=== PATIENT | female | born 1955 | race Caucasian/White ===

== ENCOUNTER 2022-05-18 21:48 | Emergency (ER) | payer BC, SELFPAY ==
[2022-05-18 22:33] LABS: Absolute Lymphocytes (CBC) 2.1 K/uL (0.7-4.9); Lymphocytes % 32.9 % (15.3-44.8); MCV 95.6 fL (80-100); MPV 8.5 fL (7.6-11.3); RBC Red Blood Cell Count 3.87 M/uL (3.86-4.86)
[2022-05-18 22:55] LABS: Potassium 3.3 mmol/L (3.5-5.1); Troponin High Sensitivity 3.2 pg/mL (<58.9)
[2022-05-19 00:54] LABS: Barbiturates NEGATIVE (NEGATIVE); Benzodiazepines NEGATIVE (NEGATIVE); Cocaine NEGATIVE (NEGATIVE); METHAMPHETAM NEGATIVE (NEGATIVE); Methadone NEGATIVE (NEGATIVE); Opiates NEGATIVE (NEGATIVE); Phencyclidine NEGATIVE (NEGATIVE); THC Cannibis POSITIVE (NEGATIVE)
--- NOTE | 2022-05-19 01:17 | ER ---
Nurse's Notes [facility] Name: Yani Bradshaw Age: 66 yrs Sex: Female : 1955 Arrival Date: 05/18/2022 Time: 21:56 Bed 2 Private MD: Diagnosis: Altered mental status, unspecified;Alcohol use, unspecified;THC Presentation: 05/18 21:57 Chief complaint: EMS states: Called for patient with episode of syncope after ETOH lp1 intake and also having THC spray during pool democrat; Patient with hx of pacemaker. Coronavirus screen: At this time, the client does not indicate any symptoms associated with coronavirus-19. Ebola Screen: No symptoms or risks identified at this time. Initial Sepsis Screen: Does the patient meet any 2 criteria? No. Patient's initial sepsis screen is negative. Does the patient have a suspected source of infection? No. Patient's initial sepsis screen is negative. Risk Assessment: Do you want to hurt yourself or someone else? Patient reports no desire to harm self or others. Onset of symptoms was May 18, 2022. Care prior to arrival: Medication(s) given: Normal saline infusion, 250ml IV initiated. 20 GA, in the right antecubital area. 21:57 Method Of Arrival: EMS: [facility] lp1 21:57 Acuity: LINNEA 3 lp1 Historical: - Allergies: 21:59 TETRACYCLINES; lp1 - Home Meds: 21:59 hormone replacement [Active]; lp1 - PSHx: 21:59 Pacemaker; lp1 22:32 hysterectomy; breast implants; lp1 - Immunization history:: Adult Immunizations up to date. - Social history:: Smoking status: Patient reports the use of cigarette tobacco products, denies chronic smoking, but will smoke occasionally. Screenin:28 Abuse screen: Denies threats or abuse. Denies injuries from another. Nutritional lp1 screening: No deficits noted. Tuberculosis screening: No symptoms or risk factors identified. Fall Risk Total Carroll Fall Scale indicates High Risk Score (45 or more points). Fall prevention measures have been instituted. Side Rails Up X 2 Placed Close to Nursing Station Frequent Obs/Assessments Occuring. Assessment: 22:28 General: Appears in no apparent distress. well groomed, Behavior is drowsy. Pain: lp1 Denies pain. Neuro: Level of Consciousness is obeys commands, Oriented to person, place, Gait is unsteady, Reports dizziness. Cardiovascular: Capillary refill < 3 seconds in bilateral fingers toes Patient's skin is warm and dry. Rhythm is regular. Respiratory: Airway is patent Respiratory effort is even, unlabored. GI: No signs and/or symptoms were reported involving the gastrointestinal system. : No signs and/or symptoms were reported regarding the genitourinary system. EENT: No signs and/or symptoms were reported regarding the EENT system. Derm: Skin is intact, Skin is dry, Skin is normal. Musculoskeletal: No deficits noted. 23:45 Reassessment: Patient appears in no apparent distress at this time. Patient resting, lp1 eyes closed, respirations even, unlabored; aware of waiting for pending lab results. 05/19 00:30 Reassessment: Patient appears in no apparent distress at this time. No changes from lp1 previously documented assessment. Vital Signs: 05/18 21:57 BP 179 / 93; Pulse 79; Resp 17; Temp 97.6(O); Pulse Ox 98% on R/A; Weight 45.36 kg (R); lp1 Height 5 ft. 1 in. (154.94 cm); Pain 0/10; 22:28 BP 162 / 73; Pulse 80; Resp 12; Pulse Ox 96% on R/A; lp1 23:24 BP 127 / 60; Pulse 77; Resp 15; Pulse Ox 96% on R/A; lp1 05/19 01:00 BP 123 / 62; Pulse 89; Resp 18; Pulse Ox 99% on R/A; jb4 01:34 BP 123 / 75; Pulse 85; Resp 15 S; Pulse Ox 99% on R/A; aa9 05/18 21:57 Body Mass Index 18.89 (45.36 kg, 154.94 cm) lp1 ED Course: 05/18 21:56 Patient arrived in ED. lp1 21:58 Mathew Nelson MD is Attending Physician. kdr 21:59 Triage completed. lp1 21:59 Arm band placed on. lp1 22:15 Maintain EMS IV. Dressing intact. Good blood return noted. Site clean \T\ dry. Gauge \T\ lp 1 site: 20g to R AC. 22:15 Initial lab(s) drawn, by me, sent to lab. lp1 22:27 Marni Saba, RN is Primary Nurse. lp1 22:28 Patient has correct armband on for positive identification. Placed in gown. Bed in low lp1 position. Call light in reach. Side rails up X2. Client placed on continuous cardiac and pulse oximetry monitoring. NIBP monitoring applied. 22:45 XRAY Chest (1 view) In Process Unspecified. EDMS 23:09 CT Head Brain wo Cont In Process Unspecified. EDMS 05/19 01:34 No provider procedures requiring assistance completed. IV discontinued, intact, aa9 bleeding controlled, No redness/swelling at site. Pressure dressing applied. Administered Medications: No medications were administered Medication: 05/18 22:29 VIS not applicable for this client. lp1 Outcome: 05/19 01:17 Discharge ordered by . kdr 01:34 Discharged to home ambulatory. aa9 01:34 Condition: stable 01:34 Discharge instructions given to patient, Instructed on discharge instructions, follow up and referral plans. Demonstrated understanding of instructions, follow-up care. 01:42 Patient left the ED. aa9 Signatures: Dispatcher [employer] EDWI Mathew Nelson MD MD kdr Marni aSba, RN RN lp1 Raghu Lopez, RN RN jb4 Luann Gilliland, NATA RN aa9 Corrections: (The following items were deleted from the chart) 05/18 22:27 21:57 BP 179 / 93; Pulse 79bpm; Resp 17bpm; Pulse Ox 98% RA; lp1 lp1 22:27 21:59 Social history: Smoking status: Patient denies any tobacco usage or history of. lp1 lp1 22:30 22:28 Neuro: Level of Consciousness is obeys commands, Oriented to person, place, Gait lp1 is unsteady, lp1 22:35 21:57 BP 179 / 93; Pulse 79bpm; Resp 17bpm; Pulse Ox 98% RA; 45.36 kg Reported; Height lp1 5 ft. 1 in.; BMI: 18.8; Pain 0/10; lp1
--- NOTE | 2022-05-19 01:18 | EDPHYS ---
Physician Documentation [facility] Name: Yani Bradshaw Age: 66 yrs Sex: Female : 1955 Arrival Date: 05/18/2022 Time: 21:56 Bed 2 Private MD: ED Physician Mathew Nelson HPI: 05/18 23:35 This 66 yrs old Female presents to ER via EMS with complaints of Syncope. kdr 23:35 The patient has experienced syncope, The patient has experienced near-syncope, almost kdr passed out. Onset: The symptoms/episode began/occurred just prior to arrival, today. Duration: The patient has had multiple episodes, Patient states that she was laying on the couch with her and felt that she was passing out intermittently. Context: the episode(s) was witnessed, by family, occurred at home, occurred while the patient was at rest, Just prior to the episode the patient experienced The course of the day, the patient has had multiple alcoholic beverages and possibly a THC containing product. Associated injury: The patient did not suffer any apparent associated injury. Associated signs and symptoms: The patient has no apparent associated signs or symptoms. Current symptoms: Patient generally appears intoxicated and is having difficulty with her speech overall mentation. It is unknown whether or not the patient has had similar symptoms in the past. The patient has not recently seen a physician. Historical: - Allergies: 21:59 TETRACYCLINES; lp1 - Home Meds: 21:59 hormone replacement [Active]; lp1 - PSHx: 21:59 Pacemaker; lp1 22:32 hysterectomy; breast implants; lp1 - Immunization history:: Adult Immunizations up to date. - Social history:: Smoking status: Patient reports the use of cigarette tobacco products, denies chronic smoking, but will smoke occasionally. ROS: 23:35 Constitutional: Negative for fever, chills, and weight loss, Eyes: Negative for injury, kdr pain, redness, and discharge, Neck: Negative for injury, pain, and swelling, Cardiovascular: Negative for chest pain, palpitations, and edema, Respiratory: Negative for shortness of breath, cough, wheezing, and pleuritic chest pain, Abdomen/GI: Negative for abdominal pain, nausea, vomiting, diarrhea, and constipation, Back: Negative for injury and pain, : Negative for injury, bleeding, discharge, and swelling, MS/Extremity: Negative for injury and deformity, Skin: Negative for injury, rash, and discoloration, Psych: Negative for depression, anxiety, suicide ideation, homicidal ideation, and hallucinations, Allergy/Immunology: Negative for hives, rash, and allergies, Endocrine: Negative for neck swelling, polydipsia, polyuria, polyphagia, and marked weight changes, Hematologic/Lymphatic: Negative for swollen nodes, abnormal bleeding, and unusual bruising. 23:35 Neuro: Positive for altered mental status, speech changes, near syncope, weakness. Exam: 23:35 Constitutional: This is a well developed, well nourished patient who is awake, alert, kdr and in no acute distress. Head/Face: Normocephalic, atraumatic. Eyes: Pupils equal round and reactive to light, extra-ocular motions intact. Lids and lashes normal. Conjunctiva and sclera are non-icteric and not injected. Cornea within normal limits. Periorbital areas with no swelling, redness, or edema. Neck: Trachea midline, no thyromegaly or masses palpated, and no cervical lymphadenopathy. Supple, full range of motion without nuchal rigidity, or vertebral point tenderness. No Meningismus. Chest/axilla: Normal chest wall appearance and motion. Nontender with no deformity. No lesions are appreciated. Cardiovascular: Regular rate and rhythm with a normal S1 and S2. No gallops, murmurs, or rubs. Normal PMI, no JVD. No pulse deficits. Respiratory: Lungs have equal breath sounds bilaterally, clear to auscultation and percussion. No rales, rhonchi or wheezes noted. No increased work of breathing, no retractions or nasal flaring. Abdomen/GI: Soft, non-tender, with normal bowel sounds. No distension or tympany. No guarding or rebound. No evidence of tenderness throughout. Back: No spinal tenderness. No costovertebral tenderness. Full range of motion. Skin: Warm, dry with normal turgor. Normal color with no rashes, no lesions, and no evidence of cellulitis. MS/ Extremity: Pulses equal, no cyanosis. Neurovascular intact. Full, normal range of motion. Psych: Awake, alert, with orientation to person, place and time. Behavior, mood, and affect are within normal limits. 23:35 Neuro: Orientation: appropriate for stated age, Mentation: slow to respond, Memory: appropriate for stated age, Cranial nerves: no acute changes, Cerebellar function: Slow to respond, Motor: moves all fours, Sensation: numbness. Vital Signs: 21:57 BP 179 / 93; Pulse 79; Resp 17; Temp 97.6(O); Pulse Ox 98% on R/A; Weight 45.36 kg (R); lp1 Height 5 ft. 1 in. (154.94 cm); Pain 0/10; 22:28 BP 162 / 73; Pulse 80; Resp 12; Pulse Ox 96% on R/A; lp1 23:24 BP 127 / 60; Pulse 77; Resp 15; Pulse Ox 96% on R/A; lp1 05/19 01:00 BP 123 / 62; Pulse 89; Resp 18; Pulse Ox 99% on R/A; jb4 01:34 BP 123 / 75; Pulse 85; Resp 15 S; Pulse Ox 99% on R/A; aa9 05/18 21:57 Body Mass Index 18.89 (45.36 kg, 154.94 cm) lp1 MDM: 05/18 23:35 Data reviewed: vital signs. Counseling: I had a detailed discussion with the patient kdr and/or guardian regarding: the historical points, exam findings, and any diagnostic results supporting the discharge/admit diagnosis, lab results, radiology results, the need for outpatient follow up. 05/19 01:17 Patient medically screened. [facility] 05/18 22:11 Order name: Basic Metabolic Panel; Complete Time: 23:33 [facility] 05/18 22:11 Order name: CBC with Diff; Complete Time: 23:33 [facility] 05/18 22:11 Order name: Troponin HS; Complete Time: 23:33 [facility] 05/18 22:11 Order name: XRAY Chest (1 view) [facility] 05/18 22:25 Order name: UDS; Complete Time: 01:08 [facility] 05/18 22:25 Order name: ETOH Level; Complete Time: 23:33 [facility] 05/18 22:11 Order name: EKG; Complete Time: 22:13 [facility] 05/18 22:11 Order name: Cardiac monitoring; Complete Time: 22:27 [facility] 05/18 22:11 Order name: EKG - Nurse/Tech; Complete Time: :27 [facility] 05/18 22:11 Order name: IV Saline Lock; Complete Time: : [facility] 05/18 22:11 Order name: Labs collected and sent; Complete Time: : kdr 05/18 22:11 Order name: O2 Per Protocol; Complete Time: kdr 05/18 22:11 Order name: O2 Sat Monitoring; Complete Time: kdr 05/18 22:25 Order name: CT Head Brain wo Cont kdr Administered Medications: No medications were administered Disposition Summary: 05/19/22 01:17 Discharge Ordered Location: Home kdr Problem: new kdr Symptoms: have improved kdr Condition: Stable kdr Diagnosis - Altered mental status, unspecified kdr - Alcohol use, unspecified kdr - THC kdr Followup: kdr - With: Private Physician - When: 2 - 3 days - Reason: If symptoms return, Further diagnostic work-up, Recheck today's complaints, Continuance of care, Re-evaluation by your physician Discharge Instructions: - Discharge Summary Sheet kdr - Confusion kdr - Alcohol Intoxication, [id number] kdr Forms: - Medication Reconciliation Form kdr - Thank You Letter kdr Signatures: Dispatcher [employer] EDMathew Galvan MD MD kdr Marni Saba RN RN lp1 Corrections: (The following items were deleted from the chart) 05/18 22: 21:59 Social history: Smoking status: Patient denies any tobacco usage or history of. lp1 lp1
[2022-05-19 02:05] VITALS: TEMP 97.6
[2022-05-19 02:15] VITALS: O2SAT 99
[2022-05-19 02:17] VITALS: BP 123/75
--- NOTE | 2022-05-19 12:20 | EKG ---
Test Date: 2022-05-18 Test Time: 22:07:52 Epic Ambulatory Analyst: KEVIN MEASUREMENT RESULTS: Intervals: Rate: 71 ND: 194 QRSD: 138 QT: 452 QTc: 491 [place]: P: 62 ND: 194 QRS: 51 T: 34 INTERPRETIVE STATEMENTS: Normal sinus rhythm Right bundle branch block Abnormal ECG No previous ECG available for comparison Electronically Signed On 05-19-22 12:19:49 CDT by Jeferson Levy
--- NOTE | 2022-05-19 13:40 | RAD REPORT ---
EXAM DESCRIPTION: RAD - Chest Single View - 05/18/2022 10:43 pm CLINICAL HISTORY: CHEST PAIN COMPARISON: None. FINDINGS: Single frontal radiograph view of the chest. 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 Leads overlie the chest. Lungs: No consolidation, pneumothorax, or pleural effusion. Bones: No acute osseous abnormality. Upper abdomen: No abnormality identified. IMPRESSION: 1. No acute pulmonary process identified. Electronically signed by: Ivan Amaya 05/18/2022 11:21 PM CDT Due to temporary technical issues with the PACS/Fluency reporting system, reports are being signed by the in house radiologists without review as a courtesy to insure prompt reporting. The interpreting radiologist is fully responsible for the content of the report.
--- NOTE | 2022-05-19 13:42 | RAD REPORT ---
EXAM DESCRIPTION: CT - Head Brain Wo Cont - 05/19/2022 3:04 am CLINICAL HISTORY: Mental status change, alcohol/drug use COMPARISON: None available TECHNIQUE: Axial CT of the head obtained from the skull apex to the skull base without contrast. Thi s exam was performed according to our departmental dose-optimization program, which includes automate d exposure control, adjustment of the mA and/or kV according to patient size and/or use of iterative reconstruction technique. FINDINGS: No acute intracranial hemorrhage identified. No mass, mass effect, shift of the midline, a bnormal extra-axial fluid collection or CT evidence of acute ischemic change identified. The ventricu lar system is unremarkable. No acute abnormalities of the supratentorial white matter, basal gangli a, cerebellum, or brainstem. Mucosal thickening of the paranasal sinuses. No skull fracture identified. Visualized orbits and gl obes are unremarkable. IMPRESSION: 1. No acute intracranial abnormality identified. . Electronically signed by: Ivan Amaya 05/18/2022 11:23 PM CDT Due to temporary technical issues with the PACS/Fluency reporting system, reports are being signed by the in house radiologists without review as a courtesy to insure prompt reporting. The interpreting radiologist is fully responsible for the content of the report.
== END 2022-05-19 01:42 | disposition home or self-care (01) ==
LOC: ER 21:48
DX: R41.82 Altered mental status, unspecified (principal); Z72.89 Other problems related to lifestyle; F19.90 Other psychoactive substance use, unspecified, uncomplicated; R55 Syncope and collapse; F17.210 Nicotine dependence, cigarettes, uncomplicated; Z95.0 Presence of cardiac pacemaker; Z98.82 Breast implant status
CPT/HCPCS: 36415; 70450; 71045; 80048; 80307; 80320; 84484; 85025; 93005; 99284

== ENCOUNTER 2023-05-20 01:29 | Emergency (ER) | payer OTHER ==
--- OUTSIDE RECORDS SUMMARY | 2023-05-20 01:36 | XMS REPORT | Continuity of Care Document ---
:1955 Author Organization [facility] t Address [address] [place] [address] [place] [id number] Care Team Providers Name Role Phone PCP, PATIENT DOES NOT HAVE A Primary Care Physician UnavailLeon Tam V Attending Clinician Unavailable Luisa Apple Attending Clinician Unavailable DANIELE MARR Attending Clinician Unavailable Raghu Guerrero Attending Clinician Unavailable Lab, Adc Fam Pob I Attending Clinician Unavailable Mariposa Magaña Attending Clinician LEON OGDEN Attending Clinician Unavailable Estella Coats Attending Clinician LISBETH PEREA Attending Clinician Unavailable MD LISBETH PEREA Attending Clinician Unavailable Leon Ogden V Admitting Clinician Unavailable Luisa Apple Admitting Clinician Unavailable Raghu Guerrero Admitting Clinician Unavailable Physician, No Primary or Family Admitting Clinician UnavailLISBETH Cedeño Admitting Clinician Unavailable MD LISBETH PEREA Admitting Clinician Unavailable Payers Payer Name Policy Type Policy Number Effective Date Expiration Date Jen perez [facility] [id number] 2016 00:00:00 Problems Condition Condition Condition Status Onset Resolution Last Treating Co mments Source Name Details Category Date Date Treatment Clinician Date Pacemaker Pacemaker Disease Active [facility] battery battery 5-27 st depletion depletion 00:00: Hosp cy 00 l Allergies, Adverse Reactions, Alerts Allergy Allergy Status Severity Reaction(s) Onset Inactive Treating Comm ents Source Name Type Date Date Clinician Jose Francisco Jean Carlosensi Active GI Method i acin ty to Intolerance 03-14 st adverse 00:00: Hospita reaction 00 l s to drug No Known DA Active U 2007-10 [facility] [place] [facility] No Known DA Active U 2007-10 [facility] Drug 11-20 [place] [facility] No Known DA Active U 2007-10 [facility] Food 11-20 [place] Allergie 00:[facility]: [facility] TAPE DA Active U IRRITATION 2007-10 [facility] [place] [facility] No Known DA Active U [facility] Drug 03-10 [place] Intolera 00:00: d nces 00 [facility] NO KNOWN Drug Active Univers ALLERGIE Class ity of S [facility] Family History Family Member Diagnosis Comments Start Date Stop Date Source Natural father [facility] Natural mother Heart disease [facility] Social History Social Habit Start Date Stop Date Quantity Comments Source Gender identity [facility] Sexual orientation [facility] Exposure to Yes University of SARS-CoV-2 (event) [facility] History of tobacco Smokes tobacco [facility] use daily Hospital History of Social 2022-12-22 2022-12-22 [facility] function 00:00:00 00:00:00 Hospital Alcohol intake 2020-03-21 2020-03-21 Current drinker [facility] 00:00:00 00:00:00 of alcohol Hospital (finding) Tobacco use and 2020-03-14 2020-03-14 Smokeless Shinto exposure 00:00:00 00:00:00 tobacco non-user Hospital Sex Ass[birth year] [facility] 00:00:00 00:00:00 Hospital Smoking Status Start Date Stop Date Source [facility] Smokes tobacco daily 2020-03-14 00:00:00 [facility] Medications Ordered Filled Start Stop Current Ordering Indication Dosage Frequency Signature Comments Components Source Medication Medication Date Date Medication? Clinician (SIG) Name Name AMLODIPINE Yes 5mg QD Take 5 mg [facility] BESYLATE, 03-[address] BULK, MISC 13:15: daily. Hospi ta 31 l estradioL 2020-0 Yes 1mg QD Take 1 mg Met hodi (ESTRACE) 1 5-[address] MG tablet 13:15: daily. Hospit a 31 l AMLODIPINE 2020-0 Yes 5mg QD Take 5 mg [facility] BESYLATE, 5-[address] BULK, MISC 13:15: daily. Hospi ta 31 l estradioL 2020-0 Yes 1mg QD Take 1 mg [facility] (ESTRACE) 1 5-[address] MG tablet 13:15: daily. Hospit a 31 l AMLODIPINE 2020-0 Yes 5mg QD Take 5 mg [facility] BESYLATE, 5-[address] BULK, MISC 13:15: daily. Hospi ta 31 l estradioL 2020-0 Yes 1mg QD Take 1 mg Met [facility] (ESTRACE) 1 5-[address] MG tablet 13:15: daily. Hospit a 31 l Procedures This patient has no known procedures. Plan of Care Planned Activity Planned Date Details Comments Source Future Scheduled 2023-04-22 COVID-19 [facility]ACC[facility]:48:01 [code = COVID-19 VACCINE (#1)] Future Scheduled 2023-04-22 65+ PNEUMOCOCCAL [facility] Test 11:48:01 VACCINE (1 - PCV) [code = 65+ PNEUMOCOCCAL VACCINE (1 - PCV)] Future Scheduled 2023-04-22 [facility] Test 11:48:01 (procedure) [code = 130428308] Future Scheduled 2023-04-22 BREAST CANCER [facility] Test 11:48:01 SCREENING [code = BREAST CANCER SCREENING] Future Scheduled 2023-04-22 Screening for [facility] Test 11:48:01 malignant neoplasm of colon (procedure) [code = 356858875] Future Scheduled 2023-04-22 Screening for [facility] Test 11:48:01 malignant neoplasm of colon (procedure) [code = 460829271] Future Scheduled 2023-04-22 SHINGLES VACCINES (1 Met [facility] Test 11:48:01 of 2) [code = SHINGLES VACCINES (1 of 2)] Future Scheduled 2023-04-22 INFLUENZA VACCINE Method [facility] Test 11:48:01 [code = INFLUENZA VACCINE] Future Scheduled 2023-04-22 Screening for [facility] Test 11:48:01 malignant neoplasm of colon (procedure) [code = 741068221] Future Scheduled 2023-04-22 Screening for [facility] Test 11:48:01 malignant neoplasm of colon (procedure) [code = 664655053] Future Scheduled 2023-04-22 Screening for [facility] Test 11:48:01 malignant neoplasm of colon (procedure) [code = 157031411] Future Scheduled 2023-01-22 COVID-19 VACCINE (#1) [facility] 23:23:40 [code = COVID-19 VACCINE (#1)] Future Scheduled 2023-01-22 65+ [facility]OCOCCAL [facility] Test 23:23:40 VACCINE (1 - PCV) [code = 65+ PNEUMOCOCCAL VACCINE (1 - PCV)] Future Scheduled 2023-01-22 [facility] Test 23:23:40 (procedure) [code = 148064049] Future Scheduled 2023-01-22 BREAST CANCER [facility] Test 23:23:40 SCREENING [code = BREAST CANCER SCREENING] Future Scheduled 2023-01-22 COLONOSCOPY [facility]CREENING [facility] Test 23:23:40 [code = COLONOSCOPY SCREENING] Future Scheduled 2023-01-22 SHINGLES VACCINES (1 Met [facility] Test 23:23:40 of 2) [code = SHINGLES VACCINES (1 of 2)] Future Scheduled 2023-01-22 INFLUENZA VACCINE [facility] Test 23:23:40 [code = INFLUENZA VACCINE] Future Scheduled 2022-10-02 COVID-19 VACCINE (#1) [facility] Test 16:43:57 [code = COVID-19 VACCINE (#1)] Future Scheduled 2022-10-02 65+ PNEUMOCOCCAL [facility] Test 16:43:57 VACCINE (1 - PCV) [code = 65+ PNEUMOCOCCAL VACCINE (1 - PCV)] Future Scheduled 2022-10-02 [facility] Test 16:43:57 (procedure) [code = 366401951] Future Scheduled 2022-10-02 BREAST CANCER [facility] Test 16:43:57 SCREENING [code = BREAST CANCER SCREENING] Future Scheduled 2022-10-02 COLONOSCOPY SCREENING [facility] Test 16:43:57 [code = COLONOSCOPY SCREENING] Future Scheduled 2022-10-02 SHINGLES VACCINES (1 [facility] Test 16:43:57 of 2) [code = SHINGLES VACCINES (1 of 2)] Future Scheduled 2022-10-02 INFLUENZA VACCINE [facility] Test 16:43:57 [code = INFLUENZA VACCINE] Encounters Start End Encounter Admission Attending Care Care Encounter Source Date/Time Date/Time Type Type Clinicians Facility Department ID 2023-02-19 2023-02-19 Outpatient JESSI Ogden [facility] [id number] [facility] 09:52:00 09:52:00 Leon 91 [facility] 2022-10-07 2022-10-07 Outpatient JESSI Apple [facility] [id number] [facility] 12:00:00 12:00:00 Luisa 07 [facility] 2021-10-27 2021-10-27 Outpatient R [facility] [id number] Univers 10:00:00 10:00:00 [facility] 2021-10-25 2021-10-25 [facility] [id number] Univers 10:45:00 10:45:00 DANIELE [facility] 2021-10-03 2021-10-03 Outpatient JESSI Guerrero [facility] [id number] [facility] 12:00:00 12:00:00 Raghu 39 [facility] 2020-10-15 2020-10-15 Laboratory Lab, [facility] Fam b I [facility] 1.2. [id number] Univers 14:38:44 14:58:44 Only Green, Mariposa iZoca [id number] ity of [place] [id number] Estuardo as Professio [phone] Ia dical [address] Office [address] One 2020-10-15 2020-10-15 Laboratory Lab, [facility] [id number] 14:38:44 14:58:44 Only Fam Pob I Health [id number] [place] [id number] Professio [phone] [place] [address] [address] 2020-10-15 2020-10-15 Outpatient R [facility] [id number] Univers 14:40:00 [facility] 2020-10[facility]01 2020-10-01 Outpatient ROBERTO CARLOS [facility] [id number] [facility] 12:00:00 12:00:00 Raghu Warren [facility] 2020-08-27 2020-08-27 Outpatient [facility] [id number] [place] 00:00:00 00:00:00 LEON 323 Method i 2020-08-27 2020-08-27 Outpatient JOSHUA [facility] [id number] [place] 00:00:00 00:00:00 LEON [address] 2020-08-02 2020-08-02 Laboratory Lab, [facility] [id number] 13:58:57 14:18:57 Only Fam Pob I Health [id number] [place] [id number] Professio [phone] [place] [address] [address] 2020-08-02 2020-08-02 Laboratory Lab, [facility] Fam Pob I [facility] 1.2. 840.114 [id number] [facility] 13:58:57 14:18:57 Only Ayesha, Estella Health [id number] ity [facility] [id number] Estuardo as Professio [phone] Ia dical [address] Office [address] One 2020-08-02 2020-08-02 Outpatient R [facility] [id number] [facility] 14:00[facility]00 [facility] 2020-03-14 2020-03-14 Outpatient BRIT, [facility] [id number] [place] 00:00:00 00:00:00 NADIM [address] 2020-03-08 2020-03-08 Outpatient BRIT, [facility] [id number] [place] 00:00:00 00:00:00 NADIM 239 Method i 2020-03-08 2020-03-08 Outpatient BRIT, [facility] [id number] [place] 00:00:00 00:00:00 NADIM [address] Results Test Description Test Time Test Comments Results Result Comments Source SARS coronavirus 2 RNA [Presence] in Respiratory speci men by 2020-03-08 15:04:29 JESSICA with probe detection Test Item Value Reference Range Interpretation Comme nts SARS coronavirus 2 RNA [Presence] in Respiratory Not detected Not-D etected specimen by JESSICA with probe detection (test code = 47000-1) ARMAAN JONES
[2023-05-20] MEDS ORDERED: NA CHLORIDE 0.9% 1,000 ML ONE (02:03)
[2023-05-20] MEDS ORDERED: METOPROLOL TARTRATE 5 MG/5 ML INJ IV ONE (02:03)
[2023-05-20 02:31] LABS: SARS-CoV-2 Antigen Rapid Res Negative (Negative)
[2023-05-20 02:36] LABS: Absolute Lymphocytes (CBC) 0.5 K/uL (0.7-4.9); Hematocrit 43.9 % (36.0-45.0); Lymphocytes % 6.7 % (15.3-44.8); MCV 96.1 fL (80-100); MPV 8.8 fL (7.6-11.3); RBC Red Blood Cell Count 4.56 M/uL (3.86-4.86)
[2023-05-20 02:37] LABS: Protime INR 0.98
[2023-05-20 02:48] LABS: ALT/SGPT 21 U/L (13-56); AST/SGOT 19 U/L (15-37); Albumin 3.4 g/dL (3.4-5.0); Alkaline Phosphatase 82 U/L (45-117); BUN Blood Urea Nitrogen 15 mg/dL (7-18); Bicarbonate 26 mEq/L (21-32); Bilirubin Total 0.3 mg/dL (0.2-1.0); Glomerular Filtration Rate 97 ml/min (=/>90); Glucose Level 122 mg/dL (74-106); Magnesium 1.8 mg/dL (1.6-2.4); NT PRO-BNP 61 pg/mL (<125); Potassium 3.8 mEq/L (3.5-5.1); Protein, Total 6.6 g/dL (6.4-8.2); Sodium Level 139 mEq/L (136-145); Troponin High Sensitivity 4.1 pg/mL (<58.9)
[2023-05-20 02:57] LABS: Bilirubin Direct < 0.1 mg/dL (0-0.2); Bilirubin Indirect, Calculated ND mg/dL (0.2-0.8)
--- NOTE | 2023-05-20 05:42 | EDPHYS ---
Physician Documentation [facility] Name: Yani Bradshaw Age: 67 yrs Sex: Female : 1955 Arrival Date: 05/20/2023 Time: 01:29 Bed 3 Private MD: ED Physician Luis Eckert HPI: 05/20 03:59 This 67 yrs old Female presents to ER via Wheelchair with complaints of chest sp4 pain . 04:27 Six 7-year-old female with history of psoriasis, syncope, symptomatic bradycardia, sp4 pacemaker, presents with a cute onset of nonexertional left-sided sharp stabbing chest pain underneath the left breast starting at roughly 11 PM yesterday evening. Patient also has had some intermittent pains for the past 2 days. Patient arrived tachycardic and hypertensive. . 04:28 . 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 - Social history:: Smoking status: Patient reports the use of cigarette tobacco products, smokes one-half pack cigarettes per day, Patient uses alcohol, on a daily basis. - Family history:: not pertinent. ROS: 04:28 Constitutional: Negative for fever, chills, and weight loss, Cardiovascular: Negative sp4 for palpitations, and edema, positive for chest pain starting last evening 04:28 All other systems are negative. Exam: 04:28 Constitutional: This is a well developed, well nourished patient who is awake, alert, sp4 and in no acute distress. Head/Face: Normocephalic, atraumatic. Eyes: Pupils equal round and reactive to light, extra-ocular motions intact. Lids and lashes normal. Conjunctiva and sclera are not injected. Cornea within normal limits. Periorbital areas with no swelling, redness, or edema. ENT: Nares patent. No nasal discharge, no septal abnormalities noted. Tympanic membranes are normal and external auditory canals are clear. Oropharynx with no redness, swelling, or masses, exudates, or evidence of obstruction, uvula midline. Mucous membranes moist. Neck: Trachea midline, no thyromegaly or masses palpated, and no cervical lymphadenopathy. Supple, full range of motion without nuchal rigidity, or vertebral point tenderness. Chest/axilla: Normal chest wall appearance and motion. Nontender with no deformity. No lesions are appreciated. Cardiovascular: Regular tachycardia with a normal S1 and S2. No gallops, murmurs, or rubs. Normal PMI, no JVD. No pulse deficits. Respiratory: Lungs have equal breath sounds bilaterally, clear to auscultation and percussion. No rales, rhonchi or wheezes noted. No increased work of breathing, no retractions or nasal flaring. Abdomen/GI: Soft, non-tender, with normal bowel sounds. No distension or tympany. No guarding or rebound. No evidence of tenderness throughout. Back: No spinal tenderness. No costovertebral tenderness. Skin: Warm, dry with normal turgor. Normal color with no rashes, no lesions, and no evidence of cellulitis. MS/ Extremity: Pulses equal, no cyanosis. Neurovascular intact. Full, normal range of motion. Neuro: Awake and alert, GCS 15, oriented to person, place, time, and situation. Cranial nerves II-XII grossly intact. Motor strength 5/5 in all extremities. Sensory grossly intact. Psych: Awake, alert, with orientation to person, place and time. Anxious appearing 04:28 ECG was reviewed by the Attending Physician. Repeat EKG at 0 419. There is sinus sp4 rhythm with first-degree AV block at a rate of 77. Right bundle branch block. No ST elevation or depression. No ectopy , otherwise normal EKG 04:28 Initial EKG was done at 0 128, it revealed sinus tachycardia at a rate of 111, right sp4 bundle branch block, no ST elevation or depression. No ectopy Vital Signs: 01:38 BP 189 / 109; Pulse 112; Resp 18 S; Temp 99.8(O); Pulse Ox 99% on R/A; Weight 46.27 kg lg3 (M); Height 5 ft. 0 in. (R); Pain 0/10; 02:01 BP 154 / 77; Pulse 89; Resp 14 S; Pulse Ox 98% on R/A; jw7 02:55 BP 154 / 63; Pulse 89; Resp 15 S; Pulse Ox 98% on R/A; lg3 04:00 BP 155 / 90; Pulse 82; Resp 24 S; Pulse Ox 99% on R/A; jw7 04:30 BP 124 / 76; Pulse 73; Resp 20 S; Pulse Ox 98% on R/A; jw7 05:45 BP 137 / 75; Pulse 75; Resp 18 S; Pulse Ox 98% on R/A; jw7 01:38 Body Mass Index 19.92 (46.27 kg, 152.4 cm) lg3 01:38 Pain Scale: Adult lg3 MDM: 01:40 Patient medically screened. sp4 03:59 Data reviewed: vital signs, nurses notes. ED course: FINDINGS: Vascular: Thoracic aorta sp4 is normal in course and caliber without aneurysm or dissection. Pulmonary arteries are adequately opacified without acute or chronic filling defects. Abdominal aorta is normal in course and caliber without aneurysm. Pelvic arteries are patent without aneurysm or occlusion. Chest: The heart is normal in size. Left single-chamber pacemaker is present. There is no pericardial effusion. Intrathoracic lymph nodes are not enlarged. There is no pleural effusion, pleural thickening or pneumothorax. Central airways are patent. Lungs are clear with no consolidation, mass or interstitial lung disease. Abdomen: There are several small cysts within the right lobe of the liver. There is no biliary dilatation. Gallbladder is normal in appearance. The pancreas and spleen are normal in appearance. The adrenal glands and kidneys are unremarkable. There is no free air. There is no retroperitoneal adenopathy. Pelvis: There is no bowel obstruction. Urinary bladder is unremarkable. There is small amount of free pelvic fluid. Appendix is normal. Hysterectomy was performed. Skeleton: There are no acute osseous findings. No suspicious bony lesions. IMPRESSION: No definite acute findings. . 04:28 Differential Diagnosis altered mental status, sepsis, Coronary artery disease, acute sp4 ACS,. Consideration of Admission/Observation Escalation of care including admission/observation considered. ED course: CT angiography revealed no signs of aortic dissection no sign of central pulmonary embolus. Repeat EKG reveals right bundle branch block but is otherwise unremarkable.. 05:40 ED course: CT chest abdomen pelvis aorta basically unremarkable. Repeat EKG reveals sp4 right bundle branch block otherwise unremarkable. Repeat troponin is negative. Patient is stable for discharge home. She will be advised to see her suit attendant on outpatient basis for an office echocardiogram. At this time suspicion for ACS is low. 05/20 01:39 Order name: Basic Metabolic Panel; Complete Time: 03:58 sp4 05/20 01:39 Order name: CBC with Diff; Complete Time: 03:58 sp4 05/20 01:39 Order name: D-Dimer; Complete Time: 03:58 sp4 05/20 01:39 Order name: LFT's; Complete Time: 03:58 sp4 05/20 01:39 Order name: Magnesium; Complete Time: 03:58 sp4 05/20 01:39 Order name: NT PRO-BNP; Complete Time: 03:58 sp4 05/20 01:39 Order name: PT-INR; Complete Time: 03:58 sp4 05/20 01:39 Order name: Troponin HS; Complete Time: 03:58 sp4 05/20 01:43 Order name: Influenza Screen (a \T\ B); Complete Time: 03:58 sp4 05/20 01:43 Order name: SARS RAPID; Complete Time: 03:58 sp4 05/20 03:46 Order name: CREATININE WHOLE BLOOD; Complete Time: 03:58 EDMS 05/20 04:00 Order name: Troponin High Sensitivity; Complete Time: 05:39 sp4 05/20 01:39 Order name: XRAY Chest (1 view) sp4 05/20 01:39 Order name: CT Aorta for Dissection sp4 05/20 01:39 Order name: EKG; Complete Time: 01:39 sp4 05/20 01:39 Order name: Cardiac monitoring; Complete Time: 01:47 sp4 05/20 01:39 Order name: EKG - Nurse/Tech; Complete Time: 01:47 sp4 05/20 01:39 Order name: IV Saline Lock; Complete Time: 01:47 sp4 05/20 01:39 Order name: Labs collected and sent; Complete Time: 01:47 sp4 05/20 01:39 Order name: O2 Per Protocol; Complete Time: 01:47 sp4 05/20 01:39 Order name: O2 Sat Monitoring; Complete Time: 01:47 sp4 05/20 02:00 Order name: Misc. Order: RECOLLECT ALL LABS; Complete Time: 02:18 rv1 05/20 04:00 Order name: EKG - Nurse/Tech; Complete Time: : sp4 EC: Rate is 77 beats/min. Rhythm is regular, Normal Sinus Rhythm. QRS Sabael is Normal. CO sp4 interval is normal. QRS interval is normal. QT interval is normal. T waves are Normal. No ST changes noted. Clinical impression: No evidence of ischemia. Interpreted by me. Administered Medications: 02:07 Not Given (Physician Discretion): Metoprolol IVP 5 mg IVP once; Hold for SBP <100 or HR lg3 <60. 02:18 Drug: NS 0.9% IV 1000 ml Route: IV; Rate: 125 ml/hr; Site: right forearm; lg3 05:46 Follow up: Response: No adverse reaction; IV Status: Order to discontinue infusion; IV jw7 Intake: 400ml Disposition Summary: 05/20/23 05:41 Discharge Ordered Location: Home sp4 Problem: new sp4 Symptoms: have improved sp4 Condition: Stable sp4 Diagnosis - Chest pain, unspecified sp4 Followup: sp4 - With: Private Physician - When: 2 - 3 days - Reason: Recheck today's complaints Discharge Instructions: - Discharge Summary Sheet sp4 - Nonspecific Chest Pain, Adult sp4 Forms: - Patient Portal Instructions sp4 Signatures: Dispatcher [employer] Anh Coon RN RN lg3 Maria L Johnson rv1 Luis Eckert MD MD sp4 Perri Sims RN jw7 Corrections: (The following items were deleted from the chart) 04:28 04:27 Six 7-year-old female with history of psoriasis, syncope, symptomatic sp4 bradycardia, pacemaker, presents with a cute onset of nonexertional left-sided sharp stabbing chest pain underneath the left breast starting on awakening this morning.. sp4 04:29 04:27 Six 7-year-old female with history of psoriasis, syncope, symptomatic sp4 bradycardia, pacemaker, presents with a cute onset of nonexertional left-sided sharp stabbing chest pain underneath the left breast starting on awakening at roughly 11 PM yesterday evening. Patient also has had some intermittent pains for the past 2 days. sp4
--- NOTE | 2023-05-20 05:42 | ER ---
Nurse's Notes [facility] Name: Yani Bradshaw Age: 67 yrs Sex: Female : 1955 Arrival Date: 05/20/2023 Time: 01:29 Bed 3 Private MD: Diagnosis: Chest pain, unspecified Presentation: 05/20 01:38 Chief complaint: Patient states: mild chest pain/pressure starting Thursday. increased lg3 pain X2 days in left chest and left arm. at roughly 2315 last night episode of extreme chest pain radiating down left arm, became clammy/diaphoretic, indigestion, belching and nausea. denies pain at this time. Coronavirus screen: Client denies travel out of the [place] in the last 14 days. At this time, the client does not indicate any symptoms associated with coronavirus-19. Ebola Screen: No symptoms or risks identified at this time. Initial Sepsis Screen: Does the patient meet any 2 criteria? No. Patient's initial sepsis screen is negative. Does the patient have a suspected source of infection? No. Patient's initial sepsis screen is negative. Risk Assessment: Do you want to hurt yourself or someone else? Patient reports no desire to harm self or others. Onset of symptoms is unknown. 01:38 Method Of Arrival: Wheelchair lg3 01:38 Acuity: LINNEA 3 lg3 Triage Assessment: 01:42 General: Appears in no apparent distress. uncomfortable, Behavior is cooperative, lg3 anxious. Pain: Denies pain. EENT: No deficits noted. No signs and/or symptoms were reported regarding the EENT system. Neuro: No deficits noted. Glaser Agitation-Sedation Scale (RASS): 0 - Alert and Calm Level of Consciousness is awake, alert, obeys commands, Oriented to person, place, time, situation, Reports weakness. Cardiovascular: Reports diaphoresis, lightheadedness, nausea, Denies chest pain, Capillary refill < 3 seconds Clubbing of nail beds is absent JVD is absent Patient's skin is warm and dry. Respiratory: No deficits noted. Airway is patent Respiratory effort is even, unlabored, Respiratory pattern is regular, symmetrical. GI: No deficits noted. Abdomen is flat, non-distended, Bowel sounds present X 4 quads. : No deficits noted. Reports urinary frequency. Derm: Skin is intact, is healthy with good turgor, Skin is clammy, Skin is normal, Skin temperature is cool. Musculoskeletal: Circulation, motion, and sensation intact. Range of motion: intact in all extremities, Reports generalized weakness. 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 - Social history:: Smoking status: Patient reports the use of cigarette tobacco products, smokes one-half pack cigarettes per day, Patient uses alcohol, on a daily basis. - Family history:: not pertinent. Screenin:46 [facility] ED Fall Risk Assessment (Adult) History of falling in the last 3 months, lg3 including since admission No falls in past 3 months (0 pts). Abuse screen: Denies threats or abuse. Denies injuries from another. Nutritional screening: No deficits noted. Tuberculosis screening: No symptoms or risk factors identified. Assessment: 01:46 General: see triage assessment . lg3 02:55 Reassessment: Patient appears in no apparent distress at this time. No changes from lg3 previously documented assessment. Patient and/or family updated on plan of care and expected duration. Pain level reassessed. Patient is alert, oriented x 3, equal unlabored respirations, skin warm/dry/pink. Patient states feeling better. 04:30 Reassessment: Patient appears in no apparent distress at this time. Patient and/or jw7 family updated on plan of care and expected duration. Pain level reassessed. Patient is alert, oriented x 3, equal unlabored respirations, skin warm/dry/pink. Patient states feeling better. Patient states symptoms have improved. 05:47 Reassessment: Patient and/or family updated on plan of care and expected duration. Pain vc1 level reassessed. Patient is alert, oriented x 3, equal unlabored respirations, skin warm/dry/pink. Patient denies pain at this time. Patient states feeling better. Patient states symptoms have improved. Vital Signs: 01:38 BP 189 / 109; Pulse 112; Resp 18 S; Temp 99.8(O); Pulse Ox 99% on R/A; Weight 46.27 kg lg3 (M); Height 5 ft. 0 in. (R); Pain 0/10; 02:01 BP 154 / 77; Pulse 89; Resp 14 S; Pulse Ox 98% on R/A; jw7 02:55 BP 154 / 63; Pulse 89; Resp 15 S; Pulse Ox 98% on R/A; lg3 04:00 BP 155 / 90; Pulse 82; Resp 24 S; Pulse Ox 99% on R/A; jw7 04:30 BP 124 / 76; Pulse 73; Resp 20 S; Pulse Ox 98% on R/A; jw7 05:45 BP 137 / 75; Pulse 75; Resp 18 S; Pulse Ox 98% on R/A; jw7 01:38 Body Mass Index 19.92 (46.27 kg, 152.4 cm) lg3 01:38 Pain Scale: Adult lg3 ED Course: 01:31 Patient arrived in ED. rv1 01:38 Luis Eckert MD is Attending Physician. sp4 01:38 Anh Ritter, NATA is Primary Nurse. lg3 01:42 Triage completed. lg3 01:42 Arm band placed on right wrist. lg3 01:46 Patient has correct armband on for positive identification. Placed in gown. Bed in low lg3 position. Call light in reach. Side rails up X 1. Client placed on continuous cardiac and pulse oximetry monitoring. NIBP monitoring applied. cardiac monitor technician on. Door closed. Noise minimized. Warm blanket given. Family accompanied patient. 01:46 Inserted saline lock: 20 gauge in right forearm, using aseptic technique. Blood lg3 collected. Patient maintains SpO2 saturation greater than 95% on room air. 01:47 Basic Metabolic Panel Sent. lg3 01:47 CBC with Diff Sent. lg3 01:47 D-Dimer Sent. lg3 01:47 LFT's Sent. lg3 01:47 Magnesium Sent. lg3 01:47 NT PRO-BNP Sent. lg3 01:47 PT-INR Sent. lg3 01:47 Troponin HS Sent. lg3 02:33 XRAY Chest (1 view) In Process Unspecified. EDMS 02:58 CT Aorta for Dissection In Process Unspecified. EDMS 04:23 Repeat lab(s) drawn. by me, sent to lab. EKG done, by ED staff, reviewed by Luis Eckert MD. 04:23 Troponin High Sensitivity Sent. jw7 05:45 No provider procedures requiring assistance completed. IV discontinued, intact, jw7 bleeding controlled, No redness/swelling at site. Pressure dressing applied. 05:46 Provided Education on: Take copies of EKG to hydrometeorology teacher and follow up. vc1 Administered Medications: 02:07 Not Given (Physician Discretion): Metoprolol IVP 5 mg IVP once; Hold for SBP <100 or HR lg3 <60. 02:18 Drug: NS 0.9% IV 1000 ml Route: IV; Rate: 125 ml/hr; Site: right forearm; lg3 05:46 Follow up: Response: No adverse reaction; IV Status: Order to discontinue infusion; IV jw7 Intake: 400ml Medication: 05:45 VIS not applicable for this client. jw7 Intake: 05:46 IV: 400ml; Total: 400ml. jw7 Outcome: 05:41 Discharge ordered by . sp4 05:45 Discharged to home ambulatory. vc1 05:45 Condition: good 05:45 Discharge instructions given to patient, Instructed on discharge instructions, follow up and referral plans. Demonstrated understanding of instructions, follow-up care. 05:47 Patient left the ED. vc1 Signatures: Dispatcher [employer] EDND Anh Ritter RN RN lg3 Analilia Chaves RN RN vc1 Perri Sims, RN NATA jw7 Maria L Johnson rv1 Luis Eckert MD MD sp4
[2023-05-20 05:54] VITALS: TEMP 99.8
[2023-05-20 05:59] VITALS: O2SAT 98
[2023-05-20 06:00] VITALS: BP 137/75
--- NOTE | 2023-05-20 15:22 | RAD REPORT ---
EXAM DESCRIPTION: CT - Angio Aorta For Dissection - 05/20/2023 6:31 am CLINICAL HISTORY: Atypical chest and L arm pain COMPARISON: None. TECHNIQUE: CT CHEST ABDOMEN PELVIS ANGIOGRAPHY WITH IV CONTRAST on 05/20/2023 1:39 AM CDT. MIPS recons tructions were generated. This exam was performed according to our departmental dose-optimization program, which includes autom ated exposure control, adjustment of the mA and/or kV according to patient size and/or use of iterati ve reconstruction technique. FINDINGS: Vascular: Thoracic aorta is normal in course and caliber without aneurysm or dissection. P ulmonary arteries are adequately opacified without acute or chronic filling defects. Abdominal aorta is normal in course and caliber without aneurysm. Pelvic arteries are patent without aneurysm or occl usion. Chest: The heart is normal in size. Left single-chamber pacemaker is present. There is no pericardial effusion. Intrathoracic lymph nodes are not enlarged. There is no pleural effusion, pleural thickening or pneumothorax. Central airways are patent. Lungs a re clear with no consolidation, mass or interstitial lung disease. Abdomen: There are several small cysts within the right lobe of the liver. There is no biliary dilata tion. Gallbladder is normal in appearance. The pancreas and spleen are normal in appearance. The adre nal glands and kidneys are unremarkable. There is no free air. There is no retroperitoneal adenopathy. Pelvis: There is no bowel obstruction. Urinary bladder is unremarkable. There is small amount of free pelvic fluid. Appendix is normal. Hysterectomy was performed. Skeleton: There are no acute osseous findings. No suspicious bony lesions. IMPRESSION: No definite acute findings. Electronically signed by: Jagdeep Salguero MD 05/20/2023 3:16 AM CDT Due to temporary technical issues with the PACS/Fluency reporting system, reports are being signed by the in house radiologists without review as a courtesy to insure prompt reporting. The interpreting radiologist is fully responsible for the content of the report.
--- NOTE | 2023-05-20 16:32 | RAD REPORT ---
EXAM DESCRIPTION: RAD - Chest Single View - 05/20/2023 2:31 am CLINICAL HISTORY: CHEST PAIN COMPARISON: None. TECHNIQUE: XR CHEST 1 VIEW 05/20/2023 1:39 AM CDT FINDINGS: The heart is normal in size. Left single-chamber pacemaker is present. Lungs are clear wit hout consolidation, atelectasis, mass or edema. There is no pleural effusion. There is no pneumothora x. There are no acute osseous findings. IMPRESSION: Clear lungs. Electronically signed by: Jagdeep Salguero MD 05/20/2023 3:14 AM CDT Due to temporary technical issues with the PACS/Fluency reporting system, reports are being signed by the in house radiologists without review as a courtesy to insure prompt reporting. The interpreting radiologist is fully responsible for the content of the report.
--- NOTE | 2023-05-20 17:31 | EKG ---
Test Date: 2023-05-20 Test Time: 04:19:43 Teachers Aide: JAZMIN MEASUREMENT RESULTS: Intervals: Rate: 77 AR: 210 QRSD: 132 QT: 414 QTc: 468 [place]: P: 55 AR: 210 QRS: 11 T: 34 INTERPRETIVE STATEMENTS: Sinus rhythm with 1st degree AV block Right bundle branch block Abnormal ECG Compared to ECG 05/18/2022 22:07:52 First degree AV block now present Electronically Signed On 05-20-23 17:30:36 CDT by Jeferson Levy
--- NOTE | 2023-05-20 17:32 | EKG ---
Test Date: 2023-05-20 Test Time: 01:28:39 Chief Executive: RV MEASUREMENT RESULTS: Intervals: Rate: 111 IA: 188 QRSD: 126 QT: 338 QTc: 459 [place]: P: 72 IA: 188 QRS: 72 T: 42 INTERPRETIVE STATEMENTS: Sinus tachycardia Possible Left atrial enlargement Right bundle branch block Septal infarct, age undetermined Abnormal ECG Compared to ECG 05/18/2022 22:07:52 Myocardial infarct finding now present Sinus rhythm no longer present Electronically Signed On 05-20-23 17:30:51 CDT by Jeferson Levy
== END 2023-05-20 05:47 | disposition home or self-care (01) ==
LOC: ER 01:29
DX: R07.89 Other chest pain (principal); F17.210 Nicotine dependence, cigarettes, uncomplicated; Z20.822 Contact with and (suspected) exposure to COVID-19; Z95.0 Presence of cardiac pacemaker; Z98.82 Breast implant status; Z88.1 Allergy status to other antibiotic agents
CPT/HCPCS: 93005 ×2; 85025; 80048; 36415; 83735; 85610; 82565; 85379; 80076; 84484 ×2; 83880; 87804 ×2; 71275; 74175; 71045; 87811; Q9967; J7030